=== PATIENT | female | born 1950 | race Caucasian/White ===

== ENCOUNTER → 2017-03-03 | Outpatient (CLI) | payer OTHER ==
[2014-04-04 11:44] VITALS: BP 111/61
--- NOTE | 2017-03-03 10:27 | US ---
HISTORY: Left upper quadrant pain Study: Abdominal ultrasound, complete Comparison: October 01, 2016 Technique: Multiple grayscale sonographic images were obtained. Findings: The liver is normal in size and configuration and without cysts mass or biliary ductal dilatation. T he spleen and abdominal aorta were normal. The head and body of the pancreas appeared within normal limits. The tail was obscured by overlying bowel gas. The gallbladder was surgically absent. The com mon duct measured 2.3 millimeters. The right kidney measured 9 centimeters in length. Left kidney me asured 7.9 centimeters in length. No solid masses, hydronephrosis, stones, or perinephric fluid elba ections were identified. IMPRESSION: No significant abnormality identified Reported By:
== END ==
LOC: RAD 08:07
PROVIDERS: ATTEND Internal Medicine
DX: R10.84 Generalized abdominal pain (principal); R10.12 Left upper quadrant pain
CPT/HCPCS: 36415; 76700; 87338

== ENCOUNTER 2017-05-26 06:59 | Day surgery (SDC) | payer OTHER ==
[2017-05-26] MEDS ORDERED: D5 LR 1000 ML 1,000 ML IV ONE (07:13)
[2017-05-26] MEDS ORDERED: DIPRIVAN VIAL 20 ML ONE (08:19)
[2017-05-26] MEDS ORDERED: XYLOCAINE 2 % (PLAIN) ONE (08:20)
[2017-05-26 09:10] VITALS: BP 119/69
== END 2017-05-26 09:05 | disposition home or self-care (01) ==
LOC: SURG1 06:59
PROVIDERS: ATTEND Internal Medicine Gastroenterology
PROC: 0DB68ZX Excision of Stomach, Via Natural or Artificial Opening Endoscopic, Diagnostic (ICD-10-PCS; principal; 2017-05-26 10:30)
PROC: 0DJ08ZZ Inspection of Upper Intestinal Tract, Via Natural or Artificial Opening Endoscopic (ICD-10-PCS; principal; 2017-05-26 10:30)
PROC: 0D757ZZ Dilation of Esophagus, Via Natural or Artificial Opening (ICD-10-PCS; principal; 2017-05-26 10:30)
PROC: 0DB88ZX Excision of Small Intestine, Via Natural or Artificial Opening Endoscopic, Diagnostic (ICD-10-PCS; principal; 2017-05-26 10:30)
DX: R10.13 Epigastric pain (principal); K21.9 Gastro-esophageal reflux disease without esophagitis; K29.60 Other gastritis without bleeding; K20.8 Other esophagitis
CPT/HCPCS: A4217; J2001; J3490; J7120

== ENCOUNTER → 2017-08-23 | Outpatient (CLI) | payer OTHER | LOC: LAB 10:12 | PROVIDERS: ATTEND Internal Medicine Gastroenterology | DX: K64.0 First degree hemorrhoids (principal) | CPT/HCPCS: 82270 ==

== ENCOUNTER → 2017-10-10 | Outpatient (CLI) | payer OTHER ==
--- NOTE | 2017-10-11 14:22 | MG ---
HISTORY: SCREENING Comparison: 11/26/2015 FINDINGS: Bilateral CC and MLO projections of the right and left breast were obtained. Scattered fibroglandula r tissue is seen to be present. No significant architectural distortion, mass or clustered microcalc ifications can be observed to suggest malignancy. No skin thickening or nipple retraction is appreci ated. No pathological lymphadenopathy can be identified. IMPRESSION: NO RADIOGRAPHIC EVIDENCE OF MALIGNANCY. ACR CATEGORY I - NEGATIVE EXAM. FOLLOW-UP EXAM 1 YEAR. Diagnostic CAD was utilized and reviewed. * 0 (ZERO) - ASSESSMENT INCOMPLETE; ADDITIONAL IMAGING IS NEEDED. * 1/ (ONE) - NEGATIVE. * 2/II (TWO) - BENIGN FINDINGS. * 3/III (THREE) - PROBABLY BENIGN FINDING; SHORT INTERVAL FOLLOW-UP SUGGESTED. * 4/IV (FOUR) - SUSPICIOUS ABNORMALITY; BIOPSY SHOULD BE CONSIDERED. * 5/V - HIGHLY SUSPICIOUS OF MALIGNANCY; BIOPSY SHOULD BE PERFORMED. A NEGATIVE X-RAY REPORT SHOULD NOT DELAY BIOPSY IF A DOMINANT OR CLINICALLY SUSPICIOUS MASS IS PRESENT; 4 TO 8 PERCENT OF CANCERS ARE NOT IDENTIFIED BY X-RAY. A NEGA TIVE REPORT MAY REINFORCE THE CLINICAL IMPRESSION. ADENOSIS AND DENSE BREASTS MAY OBSCURE AN UNDERLY ING NEOPLASM. Reported By:
== END ==
LOC: RAD 12:58
PROVIDERS: ATTEND Nurse Practitioner
DX: Z12.31 Encounter for screening mammogram for malignant neoplasm of breast (principal)
CPT/HCPCS: 77067